=== PATIENT | male | born 1985 | race Caucasian/White ===

== ENCOUNTER 2018-05-12 06:46 | Emergency (ER) | payer BC, SELFPAY ==
[2018-05-12 06:47] VITALS: BP 108/74; PULSE 69; RESP 22; TEMP 37; O2SAT 98; BMI 25.3
[2018-05-12 06:52] VITALS: O2SAT 98
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
[2018-05-12] MEDS: Ondansetron 4 MG/2 ML Vial IV ×2 (09:10→11:25)
[2018-05-12 09:11] VITALS: BP 133/72; PULSE 77; RESP 16; O2SAT 100
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
--- NOTE | 2018-05-12 10:13 | NURSING ---
ACCEPTED AT [facility].
--- NOTE | 2018-05-12 10:15 | NURSING ---
CALLED [facility] FOR TRANSPORT
[2018-05-12 10:46] VITALS: BP 136/73; PULSE 98; RESP 20; TEMP 36.5; O2SAT 99
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
== END 2018-05-12 10:54 | disposition short-term general hospital (02) ==
PROVIDERS: Emergency Provider Emergency Medicine
DX: S12.601A Unspecified nondisplaced fracture of seventh cervical vertebra, initial encounter for closed fracture (principal); S22.011A Stable burst fracture of first thoracic vertebra, initial encounter for closed fracture; S09.90XA Unspecified injury of head, initial encounter; Z23 Encounter for immunization; F10.129 Alcohol abuse with intoxication, unspecified; Z72.0 Tobacco use; V47.0XXA Car driver injured in collision with fixed or stationary object in nontraffic accident, initial encounter; Y93.I9 Activity, other involving external motion; Y92.410 Unspecified street and highway as the place of occurrence of the external cause; Y99.8 Other external cause status; Y90.6 Blood alcohol level of 120-199 mg/100 ml
CPT/HCPCS: 70450; 71260; 72125; 72128; 72131; 73030; 74177; 80320; 96374; 96376; 99285; J7030; Q9967; A4216; G0480; J2405